=== PATIENT | female | born 1950 | race Caucasian/White ===

== ENCOUNTER 2019-04-05 12:08 | Observation (INO) ==
[2019-04-05 12:45] LABS: Hematocrit 42.3 % (35.3-44.9); Hemoglobin 13.6 g/dL (11.5-15.4); Mean Corpuscular HGB Conc 32.2 g/dL (31.6-35.5); Mean Corpuscular Volume 90.2 fL (83.0-100.0); Mean Platelet Volume 12.1 fL (9.4-12.4); Platelet Count 187 K/mcL (140-400); Red Blood Count 4.69 M/mcL (3.82-4.97); Red Cell Distribution Width 13.7 % (11.5-14.5); White Blood Count 4.4 K/mcL (4.3-11.1)
[2019-04-05] MEDS: Nitroglycerin 0.4 MG TAB.SUBL SL SCH ×3 (13:05→16:58)
[2019-04-05 13:09] LABS: Alanine Aminotransferase 41 Units/L (7-52); Albumin/Globulin Ratio 1.3 (1.1-2.2); Alkaline Phosphatase 124 Units/L (34-104); Aspartate Amino Transferase 29 Units/L (13-39); BUN/Creatinine Ratio 17 (6-26); Bilirubin,Total 0.9 mg/dL (0.3-1.0); Blood Urea Nitrogen 14 mg/dL (8-23); Calcium 9.3 mg/dL (8.6-10.3); Carbon Dioxide 27 mEq/L (23-29); Chloride 101 mEq/L (98-107); Globulin 3.1 g/dL (2.4-3.5); Glucose 122 mg/dL (70-105); Osmolality,Calculated 288 (280-300); Potassium 3.6 mEq/L (3.5-5.1); Sodium 138 mEq/L (136-145); Total Protein 7.1 g/dL (6.4-8.9); Troponin I < 0.03 ng/mL (< 0.04); eGFR For African Americans > 60 (> 60); eGFR For Non-African Americans > 60 (> 60)
[2019-04-05] MEDS ORDERED: Acetaminophen 325 MG TABLET PO PRN (15:53)
[2019-04-05] MEDS ORDERED: Ondansetron 4 MG/2 ML VIAL IVP PRN (15:53)
[2019-04-05] MEDS ORDERED: *HR* Promethazine 25 MG/ML VIAL IVP PRN (15:53)
[2019-04-05] MEDS ORDERED: Mag Hydrox/Al Hydrox/Simeth 30 ML UDC PO PRN (15:53)
[2019-04-05] MEDS ORDERED: MOM Conc 10 ML UD.LIQ PO PRN (15:53)
[2019-04-05] MEDS ORDERED: Naloxone 0.4 MG/ML INJ IVP PRN (15:53)
[2019-04-05] MEDS ORDERED: Nitroglycerin 0.4 MG TAB.SUBL SL PRN (15:56)
[2019-04-05] MEDS ORDERED: D5% in Water 1,000 ML IVC PRN (16:15)
[2019-04-05] MEDS ORDERED: *HR* Dextrose 50 % in Water (Syg) 50 ML SYRINGE IVP PRN (16:15)
[2019-04-05] MEDS ORDERED: Dextrose Gel 15 GM/37.5 ML TUBE PO PRN ×2 (16:15)
[2019-04-05] MEDS ORDERED: Furosemide 20 MG/2 ML VIAL IVP ONE (16:53)
[2019-04-05] MEDS: *HR* Heparin 5,000 UNIT/ML VIAL SQ SCH (17:54)
[2019-04-05] MEDS: Insulin LISPRO 300 UNITS/3 ML VIAL SQ SCH ×2 (17:55→21:28)
[2019-04-06] MEDS: *HR* Heparin 5,000 UNIT/ML VIAL SQ SCH ×2 (05:16→16:33)
[2019-04-06 06:48] LABS: Basophils % 0.7 %; Eosinophils # 0.2 K/mcL (0.0-0.6); Eosinophils % 3.1 %; Hematocrit 37.9 % (35.3-44.9); Hemoglobin 12.9 g/dL (11.5-15.4); Immature Granulocytes % 0.4 % (0-4); Lymphocytes # 1.7 K/mcL (0.6-4.6); Lymphocytes % 30.1 %; Mean Corpuscular Volume 85.2 fL (83.0-100.0); Monocytes # 0.6 K/mcL (0.0-1.3); Monocytes % 10.3 %; Neutrophils # 3.1 K/mcL (1.6-8.9); Platelet Count 176 K/mcL (140-400); Red Blood Count 4.45 M/mcL (3.82-4.97); Red Cell Distribution Width 14.2 % (11.5-14.5); Segmented Neutrophils % 55.4 %; White Blood Count 5.5 K/mcL (4.3-11.1)
[2019-04-06 07:11] LABS: BUN/Creatinine Ratio 16 (6-26); Blood Urea Nitrogen 13 mg/dL (8-23); Calcium 9.2 mg/dL (8.6-10.3); Carbon Dioxide 28 mEq/L (23-29); Chloride 100 mEq/L (98-107); Chol/HDL Ratio 3.9 (0-4.9); Cholesterol 135 mg/dL (< 200); Glucose 135 mg/dL (70-105); HDL Cholesterol 35 mg/dL (40-59); LDL Cholesterol,Calculated 63 mg/dL (0-99); Magnesium 1.9 mg/dL (1.6-2.6); Osmolality,Calculated 288 (280-300); Phosphorous 3.8 mg/dL (2.7-4.5); Potassium 3.3 mEq/L (3.5-5.1); Sodium 138 mEq/L (136-145); Triglycerides 185 mg/dL (< 150); eGFR For African Americans > 60 (> 60); eGFR For Non-African Americans > 60 (> 60)
[2019-04-06] MEDS ORDERED: Regadenoson 0.4 MG/5 ML SYRINGE IVP ONE (07:28)
[2019-04-06] MEDS: Insulin LISPRO 300 UNITS/3 ML VIAL SQ SCH ×4 (09:06→20:21)
[2019-04-06] MEDS: Losartan/HCTZ 50-12.5 TABLET PO SCH (11:04)
[2019-04-07 05:40] LABS: Hematocrit 41.1 % (35.3-44.9); Hemoglobin 12.9 g/dL (11.5-15.4); Mean Corpuscular HGB Conc 31.4 g/dL (31.6-35.5); Mean Corpuscular Hemoglobin 28.5 pg (28.0-33.3); Mean Corpuscular Volume 90.7 fL (83.0-100.0); Mean Platelet Volume 12.6 fL (9.4-12.4); Platelet Count 161 K/mcL (140-400); Red Blood Count 4.53 M/mcL (3.82-4.97); Red Cell Distribution Width 14.1 % (11.5-14.5); White Blood Count 5.2 K/mcL (4.3-11.1)
[2019-04-07 06:09] LABS: BUN/Creatinine Ratio 20 (6-26); Blood Urea Nitrogen 18 mg/dL (8-23); Calcium 9.4 mg/dL (8.6-10.3); Carbon Dioxide 28 mEq/L (23-29); Chloride 99 mEq/L (98-107); Glucose 132 mg/dL (70-105); Osmolality,Calculated 296 (280-300); Potassium 3.3 mEq/L (3.5-5.1); Sodium 141 mEq/L (136-145); eGFR For African Americans > 60 (> 60); eGFR For Non-African Americans > 60 (> 60)
[2019-04-07] MEDS: *HR* Heparin 5,000 UNIT/ML VIAL SQ SCH (06:09)
[2019-04-07] MEDS: Insulin LISPRO 300 UNITS/3 ML VIAL SQ SCH (07:48)
[2019-04-07] MEDS: Losartan/HCTZ 50-12.5 TABLET PO SCH (08:26)
[2019-04-07] MEDS ORDERED: Cholecalciferol (D-3) 1,000 UNIT (25MCG) TABLET PO SCH (09:00)
[2019-04-07 09:06] LABS: Estimated Average Glucose 137 mg/dl
[2019-04-07 11:20] VITALS: BP 124/80
== END 2019-04-07 12:38 | disposition home or self-care (01) ==
LOC: EMEROOARM 12:08 → 3BNU 12:08
PROVIDERS: ADMIT Internal Medicine; ATTEND Internal Medicine